=== PATIENT | male | born 1980 ===

== ENCOUNTER 2019-10-29 16:45 | Emergency (ER) | payer SELFPAY ==
--- NOTE | 2019-10-29 20:42 | Event Note ---
ED Screening Note ED Screening Note: has a piece of fiberglass in the right eye states the eye itches feels foreign body sensation no vision changes no pmhx no allergies to meds This initial assessment/diagnostic orders/clinical plan/treatment(s) is/are subject to change based on patients health status, clinical progression and re-assessment by fellow clinical providers in the ED. Further treatment and workup at subsequent clinical providers discretion. Patient/guardian urged not to elope from the ED as their condition may be serious if not clinically assessed and managed. Initial orders include: needs bains lamp, [facility]
[2019-10-30] MEDS ORDERED: TETRACAINE 0.5% OPHTH SOLN 4ML OU PRN (01:24)
[2019-10-30] MEDS ORDERED: FLUORESCEIN 1 MG STRIP OP ONE (01:24)
--- NOTE | 2019-10-30 02:13 | Emergency Department Report ---
ED Eye Problem HPI - General Chief complaint: Eye Problems Stated complaint: RT EYE GLASS/PAIN Time Seen by Provider: 10/29/19 20:41 Source: patient Mode of arrival: Ambulatory Limitations: No Limitations - History of Present Illness Initial comments: Patient is a 39-year-old male with no past medical history who presents to the ED record for the acute onset persistent right eye pain, right eye itching with foreign body sensation after a piece of fiberglass scratched his right eye and that it may have entered into his right eye in the process 2 days ago. Patient states that the itching and the foreign body sensation has been persistent with pain for the last 2 days. Patient denies vision changes, headache, nausea, vomiting, fever, chills, or purulent discharge from the right eye. MD chief complaint: eye pain (right eye pain), eye injury (right), foreign body (foreign body sensation ), other (suspects that there is a fibreglass stuck in the right eye for 2 days) -: Sudden, days(s) (2) Onset Description: sudden Location: right eye Place: work If Injury: direct trauma (right eye) Eye Symptoms: burning, redness, pain, foreign body sensation, itching Severity: moderate Severity scale (0 -10): 3 If Pain, Quality: burning, aching Consistency: constant Context: trauma (fibre glass piece entered right eye), injury Associated Symptoms: none Treatments Prior to Arrival: irrigated eye - Related Data Patient Tetanus UTD: Yes Previous Rx's Medication Instructions Recorded Last Taken Type Ciprofloxacin HCl [Ciloxan] 1 drop OP Q4H #5 ml 10/30/19 Unknown Rx Ibuprofen [Motrin] 800 mg PO Q8HR PRN #20 tablet 10/30/19 Unknown Rx Allergies Allergy/AdvReac Type Severity Reaction Status Date / Time No Known Allergies Allergy Verified 10/29/19 16:46 ED Review of Systems ROS: Stated complaint: RT EYE GLASS/PAIN Other details as noted in HPI Constitutional: denies: chills, fever Eyes: eye pain (right ). denies: eye discharge, vision change ENT: denies: ear pain, throat pain Respiratory: denies: cough, shortness of breath, wheezing Cardiovascular: denies: chest pain, palpitations Endocrine: no symptoms reported Gastrointestinal: denies: abdominal pain, nausea, vomiting, diarrhea Genitourinary: denies: urgency, dysuria Musculoskeletal: denies: back pain, joint swelling, arthralgia Skin: denies: rash, lesions Neurological: denies: headache, weakness, paresthesias Psychiatric: denies: anxiety, depression Hematological/Lymphatic: denies: easy bleeding, easy bruising ED Past Medical Hx - Past Medical History Previous Medical History?: No - Surgical History Past Surgical History?: No - Social History Smoking Status: Never Smoker Substance Use Type: None - Medications Home Medications: Home Medications Medication Instructions Recorded Confirmed Last Taken Type Ciprofloxacin HCl [Ciloxan] 1 drop OP Q4H #5 ml 10/30/19 Unknown Rx Ibuprofen [Motrin] 800 mg PO Q8HR PRN #20 tablet 10/30/19 Unknown Rx ED Physical Exam - General Limitations: No Limitations General appearance: alert, in no apparent distress - Head Head exam: Present: atraumatic, normocephalic, normal inspection - Eye Eye exam: Present: normal appearance, PERRL, EOMI, other (right medial scleral erythema; no foreign body in the right eye when examined with Kerr lamp) Pupils: Present: normal accommodation - ENT ENT exam: Present: normal exam, normal orophraynx, mucous membranes moist, TM's normal bilaterally, normal external ear exam - Neck Neck exam: Present: normal inspection, full ROM - Respiratory Respiratory exam: Present: normal lung sounds bilaterally. Absent: respiratory distress, wheezes, rales, rhonchi, chest wall tenderness, accessory muscle use, decreased breath sounds - Cardiovascular Cardiovascular Exam: Present: regular rate, normal rhythm, normal heart sounds. Absent: systolic murmur, diastolic murmur, rubs, gallop - GI/Abdominal GI/Abdominal exam: Present: soft, normal bowel sounds. Absent: tenderness, guarding, hyperactive bowel sounds, hypoactive bowel sounds, organomegaly - Extremities Exam Extremities exam: Present: normal inspection, full ROM, normal capillary refill - Back Exam Back exam: Present: normal inspection, full ROM. Absent: tenderness, CVA tenderness (R), CVA tenderness (L), muscle spasm, paraspinal tenderness, vertebral tenderness - Neurological Exam Neurological exam: Present: alert, oriented X3, CN II-XII intact, normal gait, reflexes normal - Psychiatric Psychiatric exam: Present: normal affect, normal mood - Skin Skin exam: Present: warm, dry, intact, normal color. Absent: rash ED Course Vital Signs 10/29/19 10/29/19 20:53 23:38 Temperature 98.7 F 97.8 F Pulse Rate 84 59 L Respiratory 20 18 Rate Blood Pressure 135/91 135/100 O2 Sat by Pulse 98 99 Oximetry ED Medical Decision Making - Medical Decision Making Patient is a 39 yo male with no past medical history who presents to the ED with right eye pain after a piece of fibreglass entered into the right eye while he was at work 2 days. Patient denies any vision loss. In the ED, patient is alert and oriented x 3 and is in no acute distress. The Kerr lamp exam reveals no foreign body in the right conjunctiva or sclera but mild scleral abrasion. Patient was treated for pain and discharged home on pain medications and antibiotic eyedrops and advised follow-up with his primary care physician in 5-7 days for reevaluation or return to the ED immediately if symptoms get worse. - Differential Diagnosis Right eye injury; corneal abrasion; sceral abrasion Critical care attestation.: If time is entered above; I have spent that time in minutes in the direct care of this critically ill patient, excluding procedure time. ED Disposition Clinical Impression: Right eye injury Qualifiers: Encounter type: initial encounter Qualified Code(s): S05.91XA - Unspecified injury of right eye and orbit, initial encounter Injury of right conjunctiva and corneal abrasion Qualifiers: Encounter type: initial encounter Qualified Code(s): S05.01XA - Injury of conjunctiva and corneal abrasion without foreign body, right eye, initial encounter Disposition: - TO HOME OR SELFCARE Is pt being admited?: No Does the pt Need Aspirin: No Condition: Stable Instructions: Corneal Abrasion (ED) Additional Instructions: Take medications with food, drink plenty of fluids and follow up with your Primary Care Physician in 3-5 days for reevaluation. Return to the ED immediately if symptoms get worse. Prescriptions: Ciprofloxacin HCl [Ciloxan] 1 drop OP Q4H #5 ml Ibuprofen [Motrin] 800 mg PO Q8HR PRN #20 tablet PRN Reason: Pain , Severe (7-10) Referrals: [facility] [Outside] - 3-5 Days Time of Disposition: 02:15 Print Language: CONGOLESE
[2019-10-30 02:50] VITALS: BP 124/90
== END 2019-10-30 02:51 | disposition home or self-care (01) ==
LOC: ED 16:45
DX: S05.01XA Injury of conjunctiva and corneal abrasion without foreign body, right eye, initial encounter (principal); Z79.899 Other long term (current) drug therapy; W25.XXXA Contact with sharp glass, initial encounter; Y93.89 Activity, other specified; Y92.89 Other specified places as the place of occurrence of the external cause; Y99.8 Other external cause status